=== PATIENT | male | born 1980 | race Caucasian/White ===

== ENCOUNTER 2025-07-12 08:39 | Outpatient (AMB) | payer OTHER, SELFPAY ==
--- NOTE | 2025-07-12 08:41 | A.OFFPC_ITS ---
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 Intake Note: patient here for new patient visit Sales Representative Livestock Required: No Allergies No Known Allergies Allergy (Verified 07/12/25 08:52) Medication List - Last Reconciled 07/12/25 by Booker Thomas CNP No Known Home Meds Tobacco use date assessed: 07/12/25 Dental Screening Dental Screen Date: 07/12/25 Did you have a dental visit in the last 12 months?: Yes Did you have a dental problem in the last 6 months where you did not have access to dental care?: No Was dental information given to patient?: Patient has dentist HPI HPI Comments History of Present Illness Details 44-year-old male presents to establish c are. He is not on prescription medications. Prior PCP? - Does not recall name of PCP or facilit y Last office visit/CPE/labs - 3 years ago Acute issue(s) - Reports intermittent nasal and bilater al ear congestion. Ear congestion has been ongoing since childhood - Reports fungal infection to right grea t and 5th 2 and left 4th toe. He recently started applying Jublia to the affected toes Past Medical History - Chronic intermittent right knee pain Surgical History - None Family History - MGM: Cardiovascular disease Social History - Former cigarettes smoker, smoked 1ppd x 16-18 years, quit x 1 yr 3 yrs ago. Smokes cigars, 2-3 daily on/off x 20 years. Does not vape. Drinks 12-15 beers 3 days weekly, have been drinking for several years. Denies recreational drug use - Has been making healthy dietary choice s. Active but does not exercise. Generally sleep well Health maintenance - Last eye exam was about 5 years ago. R eferred to Ophthalmology for routine eye exam - Last dental visit was 2 months ago - Last Tdap was 3-4 years ago. Record no t currently available - Has not been vaccinated for the flu ; declines vaccination PFSH Family History (Updated 07/12/25 @ 08:54 by Amy Vergara MA) Maternal Grandmother Cardiovascular disease Brother Cardiovascular disease Social History (Updated 08/25/25 @ 08:49 by Amy Vergara MA) Housing: House Patient Tobacco Use Status: Current everyday Tobacco user Tobacco use type: Cigar e-Cigarette/Vaping Use: Never Used Second Hand Smoke Exposure: No service: No Current occupational status: employed Current occupation: self employed Current occupational exposures/hazards: No Cognitive needs: No Hearing needs: No Vision needs: No Questionnaire PHQ-9 Over the last 2 weeks, how often have you been bothered by any of the following problems? 1. Little interest or pleasure in doing things: not at all 2. Feeling down, depressed, or hopeless: not at all 3. Trouble falling or staying asleep, or sleeping too much: not at all 4. Feeling tired or having little energy: not at all 5. Poor appetite or overeating: not at all 6. Feeling bad about yourself - or that you are a failure or have let yourself or your family down: not at all 7. Trouble concentrating on things, such as reading the newspaper or watching television: not at all 8. Moving or speaking so slowly that other people could have noticed. Or the opposite - being so fidgety or restless that you have been moving around a lot more than usual: not at all 9. Thoughts that you would be better off or of hurting yourself in some way: not at all Total score: 0 Depression Screening Interpretation: Negative Depression Screening Done: Yes 76436 - PHQ-9 Billing: Yes Source: Developed by Drs. Rg Murillo, Kaley Watkisn, Benny Dai and colleagues, with an educational sheba from [employer]. Thrive Questionnaire Date Thrive assessed: 07/12/25 I am a: Patient What is your living situation today?: I have a steady place to live Within the past 12 months, did the food you bought not last and you didn't have the money to get more?: Never true Within the past 12 months, did you worry whether your food would run out before you got money to buy more?: Never true Do you have trouble paying for medicines?: No Do you have trouble getting transportation to medical appointments?: No Do you have trouble paying your heating and electricity bill?: No Do you have trouble taking care of your child, family member or friend?: No Do you have trouble with day-to-day activities such as bathing, preparing meals, shopping, managing finances, etc.?: No Are you currently unemployed and looking for a job?: No Are you interested in more education?: No Please select the resources that you would like help with: Food Currently or been in a relationship where the following occur: No concerns reported THRIVE Score: 0 AUDIT C Alcohol Use Questionnaire (AUDIT-C) 1. How often do you have a drink containing alcohol?: 2-3 times a week 2. How many drinks containing alcohol do you have on a typical day when you are drinking?: 5 or 6 3. How often do you have six or more drinks on one occasion?: Never Total Score: 5 Score Reviewed/Action Taken: Yes GILA-7 AMB Questionnaire GILA-7 Date GILA - 7 assessed: 07/12/25 Feeling nervous, anxious, or on edge: 0 = Not at all Not being able to stop or control worryin = Not at all Worrying too much about different things: 0 = Not at all Trouble relaxin = Not at all Being so restless that it is hard to sit still: 0 = Not at all Becoming easily annoyed or irritable: 0 = Not at all Feeling afraid as if something awful might happen: 0 = Not at all Total GILA-7 score (0-4 normal; 5-9 mild; 10-14 moderate; 15-21 severe): 0 Source: Developed by Drs. Rg Murillo, Kaley Watkins, Benny Dai and colleagues, with an educational sheba from [email or web address] GILA-7 Assessment Billing GILA-7 Assessment Tool: GILA-7 Assessment 29625 Review of Systems Const Details: Denies chills, Denies fatigue, Denies fever(s), Denies headache(s) and Denies weakness HEENT Denies change in vision, Denies dizziness, Denies headache(s), Denies hearing loss, Denies nasal congestion, Denies sinus pain, Denies sinus pressure and Denies sore throat Card Denies chest pain, Denies lightheadedness, Denies dyspnea and Denies other (palpitations) Resp Denies cough, Denies dyspnea and Denies wheezing GI Denies abdominal pain, Denies melena, Denies hematochezia, Denies change in bowel habits, Denies dyspepsia and Denies nausea Denies hematuria and Denies dysuria Musc Denies abnormal gait, Denies myalgias, Denies arthralgias, Denies numbness and Denies tingling Skin/Breast Reports fungal infection of toenails, Denies rash, Denies unusual bruising and Denies wounds Neuro Denies abnormal gait, Denies dizziness, Denies headache(s), Denies memory loss, Denies numbness, Denies Sensory deficit (Neuro), Denies tingling and Denies weak ness Psych Denies anxiety, Denies depression and Denies memory loss Endo Denies cold intolerance, Denies fatigue, Denies heat intolerance, Denies polydipsia and Denies polyuria Jose R/Lymph Denies easy bleeding and Denies easy bruising Aller/Immun Denies wheezing Physical exam (Primary Care) Vital Signs: Last Vital Signs Temp 98.4 F 07/12/25 08:49 Pulse 94 07/12/25 08:49 Resp 16 07/12/25 08:49 BP 126/75 07/12/25 08:49 Pulse Ox 98 07/12/25 08:49 Oxygen Delivery Method Room Air 07/12/25 08:49 BMI result Body Mass Index 23.9 Tobacco/Smoking Status: Tobacco use Status Tobacco use date assessed 07/12/25 07/12/25 08:53 Patient Tobacco Use Status Current everyday Tobacco 07/12/25 08:53 Tobacco use type Cigar 07/12/25 08:53 e-Cigarette/Vaping Use Never Used 07/12/25 08:53 PHQ-9: PHQ-9 Score PHQ-9: Total score 0 07/12/25 08:53 Depression Screening Interpretation: Negative Thrive Assessment: Date of Thrive Assessment Date Thrive assessed 07/12/25 07/12/25 08:45 Currently or been in a relationship where the following occur: No concerns reported Const Other: General: no acute distress, well developed, alert and awake Nutritional Appearance: well nourished Orientation/consciousness: patient oriented x3 HENMT Head: Yes normocephalic and Yes atraumatic Ears: hearing grossly normal bilaterally and TM's normal bilaterally General nose exam: Normal external nose present and Normal nares present Mouth: Normal oral and palatal mucosa present and moist mucous membranes Teeth and gingiva: dentition normal Throat: Yes oropharynx normal Eyes Pupils: Equal, round and reactive pupils present and Pupil accommodation reflex normal EOM: EOMs intact bilaterally Neck Neck: Yes normal visual inspection, Yes no lymphadenopathy and Yes trachea midline Thyroid: Thyroid normal Carotids: no bruits Lymphatic: no lymphadenopathy noted Chest Chest palpation & inspection: normal inspection of the chest Resp Effort & Inspection: normal respiratory effort Auscultation: clear to auscultation bilaterally Cardio Rate: regular rate Rhythm: regular rhythm Heart sounds: S1 normal heart sound present, S2 normal heart sound present, no gallops, no murmurs and no rubs Bruits: no abdominal aortic bruits and no carotid bruits GI Palpation (GI): No Abdominal aortic bruit present, Soft to palpation, nontender, No hepatosplenomegaly present and No Rebound tenderness present Auscultation: normal bowel sounds General: Yes no CVA tenderness Back/Spine/Pelvis Back: no CVA tenderness Cervical Spine: cervical ROM normal and No Cervical spine tenderness Thoracic/Lumbar Spine: thoraco-lumbar ROM normal, No pain with thoraco-lumbar ROM, No thoracic spinal tenderness and No lumbar spinal tenderness Skin General: warm and dry. Normal skin color. Normal skin turgor Lesions: no lesions Rashes: no rashes Trauma: no lacerations or abrasions Wounds: no wounds Nails: Thick, brown nails of the right great and 5th toes and left 4th toe Neuro General: patient oriented x3, gait normal and CN's II-XI intact bilaterally Cranial nerves: Yes Equal, round and reactive pupils present Cognition (Neuro): normal cognition Gait exam (Neuro): Normal gait present Motor exam (neuro): 5/5 motor strength present throughout Sensory Exam: No Sensory deficit (Neuro) Deep tendon reflexes (DTR's): Right patellar reflex intensity grade: 2+ and Left patellar reflex intensity grade: 2+ Extrem General: Yes normal to inspection, No edema and No calf tenderness Psych Appearance: grossly normal Affect: normal affect Attitude: cooperative Thought process: Normal thought process present Coding Level of Care Code New Pt Level 3 (64028) New Pt Prev Care 40-64y(82866) Diagnoses Normal physical examination, routine Z00.00 Onychomycosis B35.1 Alcohol use disorder F10.90 Nicotine dependence F17.200 Congestion of both ears H93.8X3 Nasal congestion R09.81 Eye exam, routine Z01.00 Laboratory tests ordered as part of a complete physical exam (CPE) Z00.00 Additional Codes GILA-7 Assessment Billing - GILA-7 Assessment Tool: GILA-7 Assessment 52446 ([id number]) PHQ-9 - 54052 - PHQ-9 Billing: Yes ([id number]) Assessment & Plan Assessment & Plan (1) Normal physical examination, routine: Code(s): Z00.00 - Encounter for general adult medical examination without abnormal findings Category: Medical Plan: No significant functional limitation noted. Healthy diet and routine exercise encouraged. Perform lab work and follow-up for a telehealth visit in 2-4 weeks. Return sooner with symptoms or concerns. Verbalized understanding and agreed with the plan. (2) Onychomycosis: Code(s): B35.1 - Tinea unguium Category: Medical Plan: Reports fungal infection to right great and 5th 2 and left 4th toe. He recently started applying Jublia to the affected toes. Thick, brown nails of the right great and 5th toes and left 4th toe He wants to continue to apply Jublia to the affected toes. Advised to follow-up with PCP as needed. Verbalized understanding and agreed with the plan. (3) Alcohol use disorder: Code(s): F10.90 - Alcohol use, unspecified, uncomplicated Category: Medical Plan: Drinks 12-15 beers 3 days weekly, have been drinking for several years. Instructed on the health risks and complications of excessive alcohol intake and encouraged to cut down or avoid drinking. No more than 2 drinks daily or 5 weekly. Declines referral to [facility] [place] for treatment for excessive alcohol intake. Follow-up as needed. Verbalized understanding and agreed with the plan. (4) Nicotine dependence: Code(s): F17.200 - Nicotine dependence, unspecified, uncomplicated Category: Medical Plan: Former cigarettes smoker, smoked 1ppd x 16-18 years, quit x 1 yr 3 yrs ago. Smokes cigars, 2-3 daily on/off x 20 years. Instructed on the health risks and complications of smoking nicotine and cessation encouraged. Declines medication treatment for nicotine and notes that he likes smoking. Advised to follow-up if he changes his mind on nicotine treatment. Verbalized understanding and agreed with plan. (5) Congestion of both ears: Code(s): H93.8X3 - Other specified disorders of ear, bilateral Category: Medical Plan: Reports intermittent nasal and bilateral ear congestion. Ear congestion has been ongoing since childhood. Normal ear and nose exam. Likely allergies. Declines an order for Zyrtec or Flonase and notes that he will purchase Zyrtec [id number]. Encouraged to follow-up as needed. May refer to ENT. Verbalized understanding and agreed with the plan. (6) Nasal congestion: Code(s): R09.81 - Nasal congestion Category: Medical Plan: Plan as above. (7) Eye exam, routine: Code(s): Z01.00 - Encounter for examination of eyes and vision without abnormal findings Category: Medical Plan: Last eye exam was about 5 years ago. Referred to Ophthalmology for routine eye exam. (8) Laboratory tests ordered as part of a complete physical exam (CPE): Code(s): Z00.00 - Encounter for general adult medical examination without abnormal findings Category: Medical Plan: Fasting labs ordered as part of a complete physical exam. Advised to fast for at least 10 hours before getting labs drawn. May drink water Verbalized understanding and agreed with treatment plan. Orders: Orders Complete Blood Count Auto Diff Today Z00.00 - Encounter for general adult medical examination without abnormal findings PSA, Ultra Sensitive Today Z00.00 - Encounter for general adult medical examination without abnormal findings Comprehensive [place]. Panel Fast Today Z00.00 - Encounter for general adult medical examination without abnormal findings Microalbumin, Random (w Creat) Today Z00.00 - Encounter for general adult medical examination without abnormal findings TSH reflex Free T4 Today Z00.00 - Encounter for general adult medical examination without abnormal findings UA CC w/rflx Micro + Cult Today Z00.00 - Encounter for general adult medical examination without abnormal findings Lipid Panel Today Z00.00 - Encounter for general adult medical examination without abnormal findings Vitamin D 25-OH Total Today Z00.00 - Encounter for general adult medical examination without abnormal findings Referrals Ophthalmology Referral Z01.00 - Encounter for examination of eyes and vision without abnormal findings
[2025-07-12 08:49] VITALS: BP 126/75; PULSE 94; RESP 16; TEMP 36.9; O2SAT 98; BMI 23.9
--- OUTSIDE RECORDS SUMMARY | 2025-07-12 09:07 | XMS_ITS | Clinical Summary ---
Author Organization [facility] Address [address] [place] [id number] Phone Care Team Providers Care Gift Consultant Name Role Phone Pcp, Unknown Primary Care Provider Unavailabl e Allergies Active Allergy Reactions Criticality Noted Date Comments Venom-Honey Bee Anaphylaxis High 08/04/2019 Wasp Venom Swelling 02/26/2019 Medications EPINEPHrine 0.3 mg/0.3 mL auto-injector Inject 0.3 mg into the muscle as needed for anaphylaxis . Active Active Problems Problem Noted Date Diagnosed Date Chronic pain of both knees 02/26/2019 FH: brain aneurysm 02/26/2019 Lipoma of torso 02/26/2019 Overweight (BMI 25.0-29.9) 02/26/2019 Tobacco use 10/30/2018 Immunizations Immunization Administration Dates Next Due Influenza Quadrivalent MDCK Preservative Free IM 10/09/2019 Influenza Quadrivalent Preservative Free IM 11/2021,10/09/2019 Tdap 10/30/2018 Social History Tobacco Use Types Packs/Day Years Used Date Smoking Tobacco: Every Day Cigars Smokeless Tobacco: Never Tobacco Cessation:Ready to Q uit: Not Asked; Counseling Given: Not Answered Education Answer Date Recorded Are you interested in more education? Not on uzair e 11/05/2023 Are you concerned about learning? Not on file 11/05/2023 No 11/05/2023 No 11/05/2023 Digital Access Answer Date Recorded No 11/05/2023 No 11/05/2023 Reliable internet access at home? Not on file 11/05/2023 Device with a working camera? Not on file Sex and Gender Information Value Date Recorded Sex Assigned at Not on file Legal Sex Male 1:16 PM EST Gender Identity Not on file Sexual Orientation Not on file Last Filed Vital Signs Vital Sign Reading Time Taken Comments Blood Pressure 120/78 11/05/2023 1:30 PM EST Pulse 94 11/05/2023 1:30 PM EST Temperature 36.8 C (98.3 F) 11/05/2023 1:30 PM EST Respiratory Rate 18 11/05/2023 1:30 PM EST Oxygen Saturation 100% 11/05/2023 1:30 PM EST Inhaled Oxygen Concentration - - Weight - - Height - - Body Mass Index - - Plan of Treatment Health Maintenance Due Date Last Done Comments LIPID PANEL 1982 DEPRESSION SCREENING 1994 SMOKING Hx and SMOKELESS TOBACCO SCREENING 1995 HEPATITIS C SCREENING 2000 HIV ONE-TIME SCREENING (18-6 5 YEARS) 2000 PNEUMOCOCCAL VACCINES (0-49 years) (1 of 2 - PCV) 2001 COVID-19 VACCINE (3 - 2023-2 5 season) 2024 11/17/2021, 02/19/2021 Adult Td,Tdap Booster 10/30/2028 10/30/2018 HEPATITIS A VACCINES Aged Out No long er eligible based on patient's age to complete this topic HIB VACCINES Aged Out No longer eligi ble based on patient's age to complete this topic MENINGOCOCCAL VACCINES (ACWY) Aged Out No longer eligible based on patient's age to complete this topic MENINGOCOCCAL VACCINES (B) Aged Out N o longer eligible based on patient's age to complete this topic Medical Devices Not on file Insurance [facility]ICE [facility]ICE [facility]ICE [facility] CHOICE Care Teams Gift Consultant Relationship Specialty Start Date End Date Pcp, Unknown PCP - General 11/05/23 Additional Source Comments The information contained in this document represents components of the legal health record. It is not the complete legal health record.[facility]
== END 2025-07-12 09:24 | disposition home or self-care (01) ==
LOC: HO.HMCFM 08:40
PROVIDERS: PCP Nurse Practitioner Family; Visit Provider Nurse Practitioner Family
DX: Z00.00 Encounter for general adult medical examination without abnormal findings (principal); B35.1 Tinea unguium; F10.90 Alcohol use, unspecified, uncomplicated; F17.200 Nicotine dependence, unspecified, uncomplicated; H93.8X3 Other specified disorders of ear, bilateral; R09.81 Nasal congestion

== ENCOUNTER → 2025-07-12 08:39 | Outpatient (BNVA) | payer OTHER, SELFPAY | PROVIDERS: PCP Nurse Practitioner Family; Visit Provider Nurse Practitioner Family | DX: Z00.00 Encounter for general adult medical examination without abnormal findings (principal); B35.1 Tinea unguium; F10.90 Alcohol use, unspecified, uncomplicated; F17.290 Nicotine dependence, other tobacco product, uncomplicated; H93.8X3 Other specified disorders of ear, bilateral; R09.81 Nasal congestion | CPT/HCPCS: 96127 ==

== ENCOUNTER 2025-07-14 11:12 | Outpatient (REF) | payer OTHER, SELFPAY ==
--- OUTSIDE RECORDS SUMMARY | 2025-07-14 12:08 | XMS_ITS | Clinical Summary ---
Author Organization [facility] Address [address] [place] [phone] Phone Care Team Providers Care Kid Club Attendant Name Role Phone Pcp, Unknown Primary Care [...] topic Medical Devices Not on file Insurance [facility] CHOICE [facility] CHOICE [facility] CHO[facility] Care Teams Kid Club Attendant Relationship Specialty Start Date End Date Pcp, Unknown PCP - General 11/05/23 Additional Source Comments The information contained in this document represents components of the legal health record. It is not the complete legal health record.[facility]
[2025-07-14 14:35] LABS: Appearance Urine Clear; Glucose Urine UA Negative (Negative); PH 6.5 (5.0-9.0); Specific Gravity - Urine <= 1.005 (1.005-1.025)
[2025-07-14 14:38] LABS: MANUAL DIFF FLAG NO
[2025-07-14 14:50] LABS: Hematocrit 40.6 % (42.0-52.0); Hemoglobin 13.4 g/dl (14.0-18.0); Imm Gran Abs Auto 0.03 X10*3/uL (0.00-0.03); Imm Gran Pct Auto 0.3 % (0.0-0.4); Lymphocytes Absolute Auto 3.2 X10*3/uL (1.2-4.9); Mean Corpuscular HGB Conc 33.0 g/dl (31.0-36.0); Mean Corpuscular Hemoglobin 32.0 pg (27.0-33.0); Mean Corpuscular Volume 96.9 fL (80.0-98.0); NRBC Abs Auto 0.000 X10*3/uL (0.0-0.012); NRBC Pct Auto 0.0 /100WBC (0.0-0.2); Platelet Count 406 X10*3/uL (160-400); Red Blood Count 4.19 X10*6/uL (4.60-5.80); White Blood Count 8.8 X10*3/uL (4.8-10.8)
[2025-07-14 15:25] LABS: Alanine Aminotransferase 17 U/L (0-40); Albumin Level 4.9 g/dL (3.5-5.0); Alkaline Phosphatase 53 U/L (39-117); Anion Gap 12 (12-20); Aspartate Amino Transferase 27 U/L (5-37); Blood Urea Nitrogen 13 mg/dL (9-16); Calcium 9.5 mg/dL (8.4-10.2); Carbon Dioxide 26 mmol/L (22-29); Chloride 105 mmol/L (96-108); Cholesterol 208 mg/dL (<200); Estimated Glomerular Filt Rate > 60; HDL Cholesterol 45 mg/dL (>40); Potassium 4.5 mmol/L (3.3-5.1); Sodium 138 mmol/L (135-145); Total Protein 7.2 g/dL (6.5-8.0); Triglycerides 87 mg/dL (<150)
[2025-07-19 15:48] LABS: PSA, Ultra Sensitive 1.40 ng/mL
== END 2025-07-14 11:13 | disposition home or self-care (01) ==
LOC: HO.WFDLDS 11:12
PROVIDERS: Visit Provider Nurse Practitioner Family
DX: Z00.00 Encounter for general adult medical examination without abnormal findings (principal); Z13.6 Encounter for screening for cardiovascular disorders; Z12.5 Encounter for screening for malignant neoplasm of prostate
CPT/HCPCS: 36415; 80053; 80061; 81003; 82043; 82306; 82570; 84153; 84443; 85025

== ENCOUNTER 2025-08-16 12:40 | Outpatient (AMB) | payer OTHER, SELFPAY ==
--- NOTE | 2025-08-16 11:53 | MHC.PC.OV ---
Intake Visit Reasons: Tele 2-4 wks labs review Intake Note: patient here for 2-4 wks Telehealth follow up for lab review Billing And Accounting Staff Assistant Required: No Allergies No Known Allergies Allergy (Verified 08/16/25 11:53) Tobacco use date assessed: 08/16/25 Dental Screening Dental Screen Date: 08/16/25 Did you have a dental visit in the last 12 months?: Yes Did you have a dental problem in the last 6 months where you did not have access to dental care?: No Was dental information given to patient?: Patient has dentist HPI HPI Comments History of Present Illness Details 44-year-old male presents for a follow-up visit for review of recent lab results. He offers no complaints and denies acute symptoms at this time. [facility] Family History (Updated 07/12/25 @ 08:54 by Amy Vergara MA) Maternal Grandmother Cardiovascular disease Brother Cardiovascular disease Social History (Updated 07/12/25 @ 08:49 by Amy Vergara MA) Housing: House Patient Tobacco Use Status: Current everyday Tobacco user Tobacco use type: Cigar e-Cigarette/Vaping Use: Never Used Second Hand Smoke Exposure: No service: No Current occupational status: employed Current occupation: self employed Current occupational exposures/hazards: No Cognitive needs: No Hearing needs: No Vision needs: No Questionnaire Thrive Questionnaire Date Thrive assessed: 07/12/25 GILA-7 AMB Questionnaire GILA-7 Date GILA - 7 assessed: 07/12/25 Source: Developed by Drs. Rg Murillo, Kaley Watkins, Benny Dai and colleagues, with an educational sheba from [employer]. Review of Systems Const Details: Denies chills, Denies fatigue, Denies fever(s), Denies headache(s) and Denies weakness Cardiac Denies chest pain, Denies claudication, Denies leg edema, Denies lightheadedness, Denies palpitations, Denies dyspnea, Denies dyspnea on exertion, Denies orthopnea and Denies other (Loss of consciousness) Resp Denies cough, Denies excessive phlegm production, Denies dyspnea, Denies dyspnea on exertion, Denies snoring and Denies wheezing Physical exam (Primary Care) Tobacco/Smoking Status: Tobacco use Status Tobacco use date assessed 08/16/25 08/16/25 11:55 Patient Tobacco Use Status Current everyday Tobacco 08/16/25 11:55 Tobacco use type Cigar 08/16/25 11:55 e-Cigarette/Vaping Use Never Used 08/16/25 11:55 Thrive Assessment: Date of Thrive Assessment Date Thrive assessed 07/12/25 08/16/25 11:55 Const Other: Patient is alert and oriented x3 Telehealth Telehealth Telehealth Platform: Telephone Location of provider rendering services: practice address Location of patient: address on file Patient Identification confirmed using: Name, : Yes Telehealth method: voice only Patient verbally consented to treatment: Yes Patient verbally consented to billing insurance company: Yes Patient informed of any privacy concerns related to visit: Yes Coding Level of Care Code Tele Est Pt Level 3 (96905) Diagnoses Hypercholesterolemia E78.00 Time Spent (min) 10 Assessment & Plan Assessment & Plan (1) Hypercholesterolemia: Code(s): E78.00 - Pure hypercholesterolemia, unspecified Category: Medical Plan: Recent lab results are unremarkable except for elevated total cholesterol and LDL, 208 and 146 respectively. Advised to limit foods high in saturated fat and avoid foods high in trans fat. Routine exercise encouraged. Fast for 10-12 hours, may drink water, and perform lipid panel blood work a few days before next visit. Follow-up for a telehealth visit in 2 months. Return sooner with symptoms or concerns. Verbalized understanding and agreed with the plan. Orders: Orders Lipid Panel 2 Months E78.00 - Pure hypercholesterolemia, unspecified
--- OUTSIDE RECORDS SUMMARY | 2025-08-16 13:49 | XMS_ITS | Clinical Summary ---
Author Organization [facility] Address [address] [place] [phone] Phone Care Team Providers Care Customer Service Rep Name Role Phone Pcp, Unknown Primary Care [...] years) (1 of 2 - PCV) 2001 INFLUENZA VACCINE (#1) 2025 , 10/09/2019, 10/09/2019 COVID-19 VACCINE (3 - 2024-2 6 season) 2025 11/17/2021, 02/19/2021 Adult Td,Tdap Booster 10/30/2028 10/30/2018 [...] topic Medical Devices Not on file Insurance [employer] [facility] CHOICE [facility] CHOICE [facility] CHOICE [facility] CHOICE [facility] CHOICE [facility] CHOICE Care Teams Customer Service Rep Relationship Specialty Start Date End Date Pcp, Unknown PCP - General 11/05/23 Additional Source Comments The information contained in this document represents components of the legal health record. It is not the complete legal health record.[facility]
== END 2025-08-16 13:18 | disposition home or self-care (01) ==
LOC: HO.HMCFM 12:40
PROVIDERS: PCP Nurse Practitioner Family; Visit Provider Nurse Practitioner Family
DX: E78.00 Pure hypercholesterolemia, unspecified (principal)

== ENCOUNTER 2025-10-13 07:32 | Outpatient (REF) | payer OTHER, SELFPAY ==
--- OUTSIDE RECORDS SUMMARY | 2025-10-13 07:35 | XMS_ITS | Clinical Summary ---
Author Organization [facility] Address [address] [place] [id number] Phone Care Team Providers Care Supervisor Composing Room Name Role Phone Pcp, Unknown Primary Care [...] topic Medical Devices Not on file Insurance [employer] [facility] CHO[facility] CHOICE [facility] CHOICE [facility] Care Teams Supervisor Composing Room Relationship Specialty Start Date End Date Pcp, Unknown PCP - General 11/05/23 Additional Source Comments The information contained in this document represents components of the legal health record. It is not the complete legal health record.[facility]
[2025-10-13 12:12] LABS: Cholesterol 215 mg/dL (<200); HDL Cholesterol 53 mg/dL (>40); Triglycerides 70 mg/dL (<150)
== END 2025-10-13 07:33 | disposition home or self-care (01) ==
LOC: HO.WFDLDS 07:32
PROVIDERS: Visit Provider Nurse Practitioner Family
DX: E78.00 Pure hypercholesterolemia, unspecified (principal)
CPT/HCPCS: 36415; 80061

== ENCOUNTER 2025-10-26 12:58 | Outpatient (AMB) | payer OTHER, SELFPAY ==
--- NOTE | 2025-10-26 13:12 | A.OFFPC_ITS ---
Vital Signs 10/26/25 13:22 Height 5 ft 6 in Weight 148 lb 2 oz BMI 23.9 BP 130/65 Blood Pressure Location Lt brachial Position Sitting Respiration 16 Pulse 87 Pulse Source Pulse Oximeter Temp 98.2 F Temp Source Oral Pulse Oximetry (%) 99 Oxygen Delivery Method Room Air Intake Visit Reasons: 2 mos, hypercholesterolemia Intake Note: patient here for 2 month follow up hypercholesterolemia Dermatologist Managing Partner Required: No Allergies No Known Allergies Allergy (Verified 10/26/25 13:21) Tobacco use date assessed: 10/26/25 Dental Screening Dental Screen Date: 10/26/25 Did you have a dental visit in the last 12 months?: Yes Did you have a dental problem in the last 6 months where you did not have access to dental care?: No Was dental information given to patient?: Patient has dentist HPI HPI Comments History of Present Illness Details 44-year-old male presents for hyperchole sterolemia follow-up.. He admits to making healthy lifestyle changes, including diet and exercise. He notes that he drinks a total of 12-15 beers 3 days weekly and that is the same amount he has been drinking for a while, even when he when he establish care here. He offers no complaints and denies acute symptoms at this time. [facility]LY [facility], [facility] Family History (Updated 07/12/25 @ 08:54 by JANE Clarke) Maternal Grandmother Cardiovascular disease Brother Cardiovascular disease Social History (Updated 07/12/25 @ 08:49 by JANE Clarke) Housing: House Patient Tobacco Use Status: Current everyday Tobacco user Tobacco use type: Cigar e-Cigarette/Vaping Use: Never Used Second Hand Smoke Exposure: No service: No Current occupational status: employed Current occupation: self employed Current occupational exposures/hazards: No Cognitive needs: No Hearing needs: No Vision needs: No Questionnaire Thrive Questionnaire Date Thrive assessed: 07/12/25 I am a: Patient What is your living situation today?: I have a steady place to live Within the past 12 months, did the food you bought not last and you didn't have the money to get more?: Never true Within the past 12 months, did you worry whether your food would run out before you got money to buy more?: Never true Do you have trouble paying for medicines?: No Do you have trouble getting transportation to medical appointments?: No Do you have trouble paying your heating and electricity bill?: No Do you have trouble taking care of your child, family member or friend?: No Do you have trouble with day-to-day activities such as bathing, preparing meals, shopping, managing finances, etc.?: No Are you currently unemployed and looking for a job?: No Are you interested in more education?: No Please select the resources that you would like help with: Food Currently or been in a relationship where the following occur: No concerns reported THRIVE Score: 0 GILA-7 AMB Questionnaire GILA-7 Date GILA - 7 assessed: 07/12/25 Source: Developed by Drs. Rg Murillo, Kaley Watkins, Benny Dai and colleagues, with an educational sheba from [employer]. Review of Systems Const Details: Const Denies chills, Denies fatigue, Denies fever(s), Denies headache(s) and Denies weakness ENT Denies dizziness and Denies headache(s) Card Denies chest pain, Denies lightheadedness, Denies dyspnea and Denies other (Palpitations) Resp Denies cough, Denies dyspnea, Denies wheezing and Denies other ( shortness of breath) GI Denies abdominal pain, Denies melena, Denies hematochezia, Denies change in bowel habits, Denies dyspepsia and Denies nausea Denies hematuria and Denies dysuria Musc Denies abnormal gait, Denies myalgias, Denies arthralgias, Denies numbness and Denies tingling Skin/Breast Denies rash, Denies unusual bruising and Denies wounds Neuro Denies abnormal gait, Denies dizziness, Denies headache(s), Denies memory loss, Denies numbness, Denies Sensory deficit (Neuro), Denies tingling and Denies weakness Psych Denies anxiety, Denies depression, Denies memory loss Endo Denies cold intolerance, Denies fatigue, Denies heat intolerance, Denies polydipsia and Denies polyuria Aller/Immun Denies wheezing Physical exam (Primary Care) Vital Signs: Last Vital Signs Temp 98.2 F 10/26/25 13:22 Pulse 87 10/26/25 13:22 Resp 16 10/26/25 13:22 BP 130/65 10/26/25 13:22 Pulse Ox 99 10/26/25 13:22 Oxygen Delivery Method Room Air 10/26/25 13:22 BMI result Body Mass Index 23.9 Tobacco/Smoking Status: Tobacco use Status Tobacco use date assessed 10/26/25 10/26/25 13:25 Patient Tobacco Use Status Current everyday Tobacco 10/26/25 13:16 Tobacco use type Cigar 10/26/25 13:16 e-Cigarette/Vaping Use Never Used 10/26/25 13:16 Thrive Assessment: Date of Thrive Assessment Date Thrive assessed 07/12/25 10/26/25 13:16 Currently or been in a relationship where the following occur: No concerns reported Const Other: General: no acute distress and well developed Nutritional Appearance: well nourished Orientation/consciousness: patient oriented x3 HENMT Head: Yes normocephalic and Yes atraumatic Eyes General: appearance normal, both eyes and all related structures Pupils: Equal, round and reactive pupils present EOM: EOMs intact bilaterally Resp Effort & Inspection: normal respiratory effort Auscultation: clear to auscultation bilaterally Cardio Rate: regular rate Rhythm: regular rhythm Heart sounds: S1 normal heart sound present, S2 normal heart sound present, no gallops, no murmurs and no rubs Extrem General: Yes normal to inspection, No edema and No calf tenderness Skin General: warm and dry. Normal skin color. Normal skin turgor Neuro General: patient oriented x3, gait normal and no focal neuro deficit Cranial nerves: Yes Equal, round and reactive pupils present Cognition (Neuro): normal cognition Gait exam (Neuro): Normal gait present Sensory Exam: No Sensory deficit (Neuro) Psych Appearance: grossly normal Affect: normal affect Attitude: cooperative Thought process: Normal thought process present Coding Level of Care Code Est Pt Level 3 (05752) Diagnoses Hypercholesterolemia E78.00 Assessment & Plan Assessment & Plan (1) Hypercholesterolemia: Code(s): E78.00 - Pure hypercholesterolemia, unspecified Category: Medical Plan: Recent total cholesterol LDL levels elevated, 215 and 148 respectively, previous levels were 208 and 146 respectively. Declines medication treatment at this time and notes that he will continue to make lifestyle changes. Advised to limit foods high in saturated fat and avoid foods high in trans fat. Encouraged to avoid or cut down on alcohol intake. No more than 2 drinks daily or 5 weekly. Routine exercise encouraged. Fast for 10-12 hours, may drink water, and perform lipid panel blood work a few days before next visit. Follow-up in 3 months for transfer of care with a provider within the practice. Return sooner with symptoms or concerns. Verbalized understanding and agreed with the plan. Orders: Orders Lipid Panel 3 Months E78.00 - Pure hypercholesterolemia, unspecified
[2025-10-26 13:22] VITALS: BP 130/65; PULSE 87; RESP 16; TEMP 36.8; O2SAT 99; BMI 23.9
== END 2025-10-26 14:07 | disposition home or self-care (01) ==
LOC: HO.HMCFM 12:59
PROVIDERS: PCP Nurse Practitioner Family; Visit Provider Nurse Practitioner Family
DX: E78.00 Pure hypercholesterolemia, unspecified (principal)